=== PATIENT | male | born 1955 | race Caucasian/White ===

== ENCOUNTER 2018-11-03 20:53 | Inpatient (IN) | payer BC ==
[~2018-11-03] VITALS: Ht 182.9 cm; Wt 124.4 kg
[~2018-11-03 20:53] MED LIST: ANAS1TAB7 PO; DICY10CA13 PO; LOSA50TA64 PO; TEST200V21 IM
[2018-11-03 21:16] LABS: BASOPHILS % (AUTO) 0.3 % (0.0-5.0); EOSINOPHILS % (AUTO) 1.8 % (0.0-8.0); HEMATOCRIT 49.6 % (42-54); LYMPHOCYTES % (AUTO) 15.6 % (21.0-51.0); MEAN CORPUSCULAR HEMOGLOBIN 30.9 pg (27.0-33.0); MEAN CORPUSCULAR HGB CONC 34.5 g/dL (32.0-36.0); MEAN CORPUSCULAR VOLUME 89.6 fL (79-99); NEUTROPHILS % (AUTO) 73.3 % (40.0-77.0); PLATELET COUNT (AUTO) 143 K/uL (130-400); RED BLOOD CELL COUNT(AUTO) 5.54 MIL/uL (4.50-6.20); RED CELL DISTRIBUTION WIDTH 14.4 % (11.0-15.5); WHITE BLOOD COUNT (AUTO) 11.5 K/uL (4.8-10.8)
[2018-11-03 21:19] LABS: APPEARANCE,URINE Clear (CLEAR); BILIRUBIN,URINE Negative (NEGATIVE); COLOR,URINE Yellow (YELLOW); GLUCOSE, URINE (UA) Negative (NEGATIVE); KETONES,URINE Negative (NEGATIVE); LEUKOCYTE ESTERASE ,URINE Negative (NEGATIVE); NITRATE,URINE Negative (NEGATIVE); OCCULT BLOOD,URINE Negative (NEGATIVE); PH,URINE 5.5 (5.0-8.0); PROTEIN,URINE Negative (NEGATIVE)
[2018-11-03 21:24] LABS: CREATININE 1.4 mg/dL (0.5-1.5); POTASSIUM 4.4 mmol/L (3.5-5.1)
[2018-11-03] MEDS ORDERED: NITROGLYCERIN 1GM/1 INCH PACKET TD ONE (21:25)
[2018-11-03] MEDS ORDERED: ASPIRIN 81MG TAB.CHEW ONE (21:25)
[2018-11-03 21:37] LABS: ALBUMIN 3.6 g/dL (3.5-5.0); BILIRUBIN,TOTAL 0.6 mg/dL (0.2-1.0); TOTAL PROTEIN, SERUM 6.6 g/dL (6.0-8.3)
[2018-11-03 21:45] LABS: CREATINE KINASE, TOTAL 75 U/L (21-232); MYOGLOBIN 53 ng/mL (10-92); TROPONIN I < 0.04 ng/mL (0.00-0.06)
[2018-11-03] MEDS: NITROGLYCERIN 1GM/1 INCH PACKET TD SCH (22:45)
[2018-11-03] MEDS ORDERED: LORAZEPAM 2 MG/ML 1 ML VIAL IVP PRN (22:45)
[2018-11-03] MEDS ORDERED: MORPHINE SULFATE 2 MG/ML 1ML SYG IV PRN (22:45)
[2018-11-03] MEDS ORDERED: ONDANSETRON HCL 4 MG/2 ML VIAL IV PRN (22:45)
[2018-11-03] MEDS ORDERED: ACETAMINOPHEN 325 MG TAB PO PRN ×2 (22:45)
[2018-11-03] MEDS ORDERED: MORPHINE SULFATE 4 MG/1ML SYG IV PRN (22:45)
--- NOTE | 2018-11-03 23:30 | NUR ---
Received pt.from ER accompanied by .Pt. is alert and oriented,came in to Er for c/o chestpain however pt. denies chestpain or any discomfort at this time.Pt. orientated to room ,call light,bed mobility and staff.Instructed to use call light for assistance and demonstrated understanding.Pt. instructed to be on bedrest at this time.
[2018-11-03] MEDS ORDERED: AEC81 PO (23:31)
[2018-11-03 23:40] VITALS: BP 139/72
[2018-11-04 01:26] LABS: TROPONIN I 0.07 ng/mL (0.00-0.06)
[2018-11-04 03:46] VITALS: BP 121/62
[2018-11-04 05:45] LABS: TROPONIN I 0.07 ng/mL (0.00-0.06)
[2018-11-04] MEDS: NITROGLYCERIN 1GM/1 INCH PACKET TD SCH ×3 (05:54→21:46)
[2018-11-04 07:00] VITALS: BP 107/72
[2018-11-04] MEDS: METOPROLOL TARTRATE 25 MG TAB PO SCH ×2 (09:39→20:56)
[2018-11-04] MEDS: ASPIRIN 325 MG TABLET PO SCH (09:39)
[2018-11-04] MEDS: FAMOTIDINE/PF 20 MG/2 ML VIAL IV SCH ×2 (09:39→20:57)
[2018-11-04] MEDS: ENOXAPARIN SODIUM 30 MG/0.3 ML SQ SCH ×2 (09:41→20:59)
[2018-11-04 10:41] LABS: TROPONIN I 0.09 ng/mL (0.00-0.06)
[2018-11-04 11:30] VITALS: BP 112/65
[2018-11-04 16:00] VITALS: BP 112/57
--- NOTE | 2018-11-04 17:45 | NUR ---
cm note pt resides athome with spouse, independent with ambulation and adls and self care, dc plan is back to home. no dc needs. Addendum: 11/04/18 at 1746 by MICHAEL DURAN CM Amended: Links added.
[2018-11-04 20:00] VITALS: BP 117/70
[2018-11-04 20:56] LABS: TROPONIN I 0.17 ng/mL (0.00-0.06)
[2018-11-04 23:55] VITALS: BP 105/58
[2018-11-05 03:51] VITALS: BP 112/57
[2018-11-05 03:54] LABS: HEMOGLOBIN A1C 5.2 % (4.0-6.0)
[2018-11-05 04:07] LABS: INR 1.02 (0.85-1.15); PARTIAL THROMBOPLASTIN TIME 28.9 SEC (26.3-35.5); PROTHROMBIN TIME 10.7 SEC (9.6-11.6)
[2018-11-05 04:16] LABS: TROPONIN I 0.1 ng/mL (0.00-0.06)
[2018-11-05] MEDS: NITROGLYCERIN 1GM/1 INCH PACKET TD SCH ×2 (06:12→14:45)
[2018-11-05 07:00] VITALS: BP 112/60
[2018-11-05] MEDS: REGADENOSON 0.4 MG/5 ML PF SYG IVP SCH ×2 (07:15→12:33)
--- NOTE | 2018-11-05 07:30 | NUR ---
ASSESSMENT ENCOUNTERED PT AMBULATING AROUND ROOM, GAIT STEADY AND STRONG WITH STAND BY ASSIST, A&OX3, CALM, COOPERATIVE AND DOES NOT APPEAR TO BE IN ANY DISTRESS NOR ANY NEURO DEFICITS PRESENT. PT DENIES PAIN, SOB, NAUESA. PT IS NPO FOR PENDING LEXISCAN. CALL LIGHT WITHIN REACH, FAMILY AT BEDSIDE.
[2018-11-05] MEDS: FAMOTIDINE/PF 20 MG/2 ML VIAL IV SCH (09:00)
[2018-11-05] MEDS ORDERED: FAMOTIDINE 20MG TAB 20 MG TAB ONE (10:29)
[2018-11-05] MEDS: ASPIRIN 325 MG TABLET PO SCH (10:31)
[2018-11-05] MEDS: METOPROLOL TARTRATE 25 MG TAB PO SCH (10:31)
[2018-11-05] MEDS: ENOXAPARIN SODIUM 30 MG/0.3 ML SQ SCH (10:32)
[2018-11-05 11:00] VITALS: BP 117/68
--- NOTE | 2018-11-05 15:16 | NUR ---
RD Notification Pt tolerating Heart Healthy Diet with no report of GI distress and PO intake at 100%. Pt LBM 11/03/18. Pt monitored labs: HDL 28, BUN 24, GFR 55, Glu 103, Alb 3.6. Pt with Obesity (BMI 37.2). RD to continue to monitor. Please notify RD as nutritional concerns arise. Thank you. Addendum: 11/05/18 at [address] RD Amended: Links added.
--- NOTE | 2018-11-05 15:30 | NUR ---
DISCHARGE INSTRUCTIONS GIVEN, PIV REMOVED AND INTACT, DISCHARGED HOME TO FAMILY VEHICLE VIA WHEELCHAIR.
== END 2018-11-05 17:02 | disposition home or self-care (01) | DRG 311 ==
LOC: EDH 20:53 → EDHIP 22:15 → 2DH 23:28
PROVIDERS: ADMIT Hospitalist; ATTEND Hospitalist
DX: I20.0 Unstable angina (principal); I10 Essential (primary) hypertension; Z79.82 Long term (current) use of aspirin; Z85.46 Personal history of malignant neoplasm of prostate; Z87.891 Personal history of nicotine dependence; Z79.899 Other long term (current) drug therapy; Z80.0 Family history of malignant neoplasm of digestive organs; Z80.42 Family history of malignant neoplasm of prostate; Z82.3 Family history of stroke; Z82.5 Family history of asthma and other chronic lower respiratory diseases; Z80.59 Family history of malignant neoplasm of other urinary tract organ
CPT/HCPCS: 36415; 71045; 78452; 80053; 80061; 81003; 82550; 83036; 83874; 84484; 85025; 85610; 85730; 93005; 93017; 96374; A9500; G0378; J1650; J2785; J3490

== ENCOUNTER 2018-11-12 12:26 | Inpatient (IN) | payer BC ==
[~2018-11-12] VITALS: Ht 182.9 cm; Wt 120.6 kg
[2018-11-12] VITALS (9 sets, daily range): BP systolic 108–157; BP diastolic 60–97
[~2018-11-12 12:26] MED LIST changes: +AEC81 PO; -DICY10CA13 PO
[2018-11-12 12:48] LABS: BASOPHILS % (AUTO) 0.6 % (0.0-5.0); EOSINOPHILS % (AUTO) 1.6 % (0.0-8.0); HEMATOCRIT 48.3 % (42-54); LYMPHOCYTES % (AUTO) 16.1 % (21.0-51.0); MEAN CORPUSCULAR HEMOGLOBIN 30.3 pg (27.0-33.0); MEAN CORPUSCULAR HGB CONC 33.9 g/dL (32.0-36.0); MEAN CORPUSCULAR VOLUME 89.3 fL (79-99); MONOCYTES % (AUTO) 9.2 % (3.0-13.0); NEUTROPHILS % (AUTO) 72.5 % (40.0-77.0); NUCLEATED RED BLOOD CELLS 0.1 % (0.0-0.19); PLATELET COUNT (AUTO) 154 K/uL (130-400); RED BLOOD CELL COUNT(AUTO) 5.41 MIL/uL (4.50-6.20); RED CELL DISTRIBUTION WIDTH 13.8 % (11.0-15.5); WHITE BLOOD COUNT (AUTO) 9.8 K/uL (4.8-10.8)
[2018-11-12 12:57] LABS: CREATININE 1.2 mg/dL (0.5-1.5); POTASSIUM 4.5 mmol/L (3.5-5.1)
[2018-11-12 13:01] LABS: ALBUMIN 3.6 g/dL (3.5-5.0); BILIRUBIN,TOTAL 0.6 mg/dL (0.2-1.0); TOTAL PROTEIN, SERUM 6.7 g/dL (6.0-8.3)
[2018-11-12 13:08] LABS: CREATINE KINASE, TOTAL 67 U/L (21-232); MYOGLOBIN 41 ng/mL (10-92); TROPONIN I < 0.04 ng/mL (0.00-0.06)
[2018-11-12] MEDS ORDERED: ANAS1TAB7 PO (13:16)
[2018-11-12] MEDS ORDERED: SODIUM CHLORIDE 0.9% 10 ML VIAL IVP SCH (13:30)
[2018-11-12] MEDS ORDERED: ONDANSETRON HCL 4 MG/2 ML VIAL IVP PRN (13:30)
[2018-11-12] MEDS ORDERED: ASPI-555 PO (13:32)
[2018-11-12] MEDS ORDERED: PANT40TA25 PO (13:32)
[2018-11-12] MEDS ORDERED: ISOS10TA8 PO (13:32)
[2018-11-12] MEDS ORDERED: LOSA50TA64 PO (13:32)
[2018-11-12] MEDS ORDERED: NITR0.4T50 SL (13:32)
[2018-11-12 14:22] LABS: INR 1.05 (0.85-1.15); PARTIAL THROMBOPLASTIN TIME 29.1 SEC (26.3-35.5)
[2018-11-12] MEDS ORDERED: LIDOCAINE HCL 2% 20ML ONE (14:48)
[2018-11-12] MEDS ORDERED: IOHEXOL-350 50ML VIAL IV ONE ×2 (14:48→15:30)
[2018-11-12] MEDS ORDERED: HEPARIN SODIUM 1000UNIT/ML 10ML VIAL ONE (14:48)
[2018-11-12] MEDS ORDERED: NITROGLYCERIN 5 MG/ML 10 ML VIAL IV ONE (14:48)
[2018-11-12] MEDS ORDERED: IOHEXOL 350 MG/ML 100ML INFUS..BTL IV ONE ×2 (14:48→15:33)
[2018-11-12] MEDS ORDERED: SODIUM BICARB 50MEQ 50ML VIAL ONE (14:48)
[2018-11-12] MEDS ORDERED: MEPERIDINE-PF 25 MG/ML SYG ONE ×2 (15:19→15:38)
[2018-11-12] MEDS ORDERED: MIDAZOLAM HCL 1 MG/ML 2ML VIAL ONE ×2 (15:19→15:37)
[2018-11-12] MEDS ORDERED: IOHEXOL-350 75 ML VIAL IV ONE ×2 (15:33→15:58)
[2018-11-12] MEDS ORDERED: TICAGRELOR 90 MG TABLET ONE (16:07)
[2018-11-12] MEDS ORDERED: ASPIRIN 81MG TAB.CHEW ONE (16:07)
[2018-11-12] MEDS ORDERED: NITROGLYCERIN 0.4 MG SL TAB SL SCH (16:15)
[2018-11-12] MEDS ORDERED: SODIUM CHLORIDE 0.9% 1000ML 1,000 ML IV SCH (16:16)
[2018-11-12] MEDS ORDERED: ALPRAZOLAM 0.5 MG TABLET PO PRN (16:30)
[2018-11-12] MEDS: TICAGRELOR 90 MG TABLET PO SCH (20:14)
[2018-11-12] MEDS ORDERED: ATORVASTATIN CALCIUM 10 MG TABLET PO SCH (21:00)
[2018-11-13 03:36] LABS: HEMATOCRIT 44.9 % (42-54); MEAN CORPUSCULAR HEMOGLOBIN 31.3 pg (27.0-33.0); MEAN CORPUSCULAR HGB CONC 34.7 g/dL (32.0-36.0); MEAN CORPUSCULAR VOLUME 90.2 fL (79-99); PLATELET COUNT (AUTO) 125 K/uL (130-400); RED BLOOD CELL COUNT(AUTO) 4.98 MIL/uL (4.50-6.20); RED CELL DISTRIBUTION WIDTH 14.2 % (11.0-15.5); WHITE BLOOD COUNT (AUTO) 9.1 K/uL (4.8-10.8)
[2018-11-13 03:42] LABS: CREATININE 1.2 mg/dL (0.5-1.5); POTASSIUM 4.3 mmol/L (3.5-5.1)
[2018-11-13 03:47] VITALS: BP 142/76
--- NOTE | 2018-11-13 05:34 | NUR ---
PATIENT DENIES SOB OR CHEST PAIN. ASSESSED R GROIN Q4H. NO S/S OF HEMATOMA. PEDAL PULSES INTACT. PATIENT AMBULATED WITHOUT COMPLICATIONS S/P HEART CATH.
[2018-11-13 07:00] VITALS: BP 128/69
[2018-11-13] MEDS: TICAGRELOR 90 MG TABLET PO SCH (08:25)
[2018-11-13] MEDS ORDERED: LOSARTAN 50 MG TABLET PO SCH (09:00)
[2018-11-13] MEDS ORDERED: ASPIRIN 81MG TAB.CHEW PO SCH (09:00)
[2018-11-13] MEDS ORDERED: PANTOPRAZOLE SODIUM 40 MG TABLET.DR PO SCH (09:00)
[2018-11-13] MEDS ORDERED: ASPIRIN 325 MG TABLET PO SCH (09:00)
[2018-11-13 11:00] VITALS: BP 133/72
[2018-11-13] MEDS ORDERED: ROSU5TAB11 PO (11:17)
[2018-11-13] MEDS ORDERED: TICA90TA PO (11:17)
--- NOTE | 2018-11-13 14:38 | NUR ---
DC PLAN VISITED WITH PATIENT. PATIENT GETTING ECHO. UNABLE TO DO IA. PATIENT BEING DISCHARGED NO NEEDS VERBALIZED BY NURSING STAFF. Addendum: 11/13/18 at 1439 by ERIN MARSH RN CM Amended: Links added.
--- NOTE | 2018-11-13 15:49 | NUR ---
PIV and telepack removed; prescription given to patient and copy placed in chart; coronary stent card also given to patient and copy placed in chart; all questions answered and patient discharged home
== END 2018-11-13 17:00 | disposition home or self-care (01) | DRG 247 ==
LOC: EDH 12:26 → 2AH 12:27
PROVIDERS: ADMIT Internal Medicine; ATTEND Internal Medicine
PROC: 4A023N7 Measurement of Cardiac Sampling and Pressure, Left Heart, Percutaneous Approach (ICD-10-PCS; principal; 2018-11-12)
PROC: 027135Z Dilation of Coronary Artery, Two Arteries with Two Drug-eluting Intraluminal Devices, Percutaneous Approach (ICD-10-PCS; 2018-11-12)
PROC: B2111ZZ Fluoroscopy of Multiple Coronary Arteries using Low Osmolar Contrast (ICD-10-PCS; 2018-11-12)
PROC: B2151ZZ Fluoroscopy of Left Heart using Low Osmolar Contrast (ICD-10-PCS; 2018-11-12)
DX: I25.110 Atherosclerotic heart disease of native coronary artery with unstable angina pectoris (principal); I10 Essential (primary) hypertension; E78.5 Hyperlipidemia, unspecified; K21.9 Gastro-esophageal reflux disease without esophagitis; Z98.84 Bariatric surgery status; Z90.79 Acquired absence of other genital organ(s); Z85.46 Personal history of malignant neoplasm of prostate; Z80.42 Family history of malignant neoplasm of prostate; Z80.0 Family history of malignant neoplasm of digestive organs; Z82.3 Family history of stroke; Z82.5 Family history of asthma and other chronic lower respiratory diseases; Z82.49 Family history of ischemic heart disease and other diseases of the circulatory system
CPT/HCPCS: 36415; 80048; 80053; 82550; 83874; 84484; 85025; 85027; 85610; 85730; 93005; 93306; 93458; 99156; 99157; C1760; C1769; C1887; C1894; C9600; G0378; J1644; J2175; J2250; J3490; J7030; Q9967

== ENCOUNTER → 2019-02-27 | Outpatient (CLI) | payer BC ==
[~2019-02-27] MED LIST changes: +NITR0.4T50 SL; +PANT40TA25 PO; +ROSU5TAB12 PO; +TICA90TA PO
== END | disposition home or self-care (01) ==
LOC: SHCH 15:26
PROVIDERS: ATTEND Internal Medicine Cardiovascular Disease
DX: I11.9 Hypertensive heart disease without heart failure (principal); I25.10 Atherosclerotic heart disease of native coronary artery without angina pectoris
CPT/HCPCS: 93306

== ENCOUNTER → 2022-12-08 | Outpatient (CLI) | payer BC ==
[~2022-12-08] MED LIST changes: -PANT40TA25 PO; +PANT40TA54 PO; -TICA90TA PO
== END | disposition home or self-care (01) ==
LOC: SHCH 07:55
PROVIDERS: ATTEND Internal Medicine Cardiovascular Disease
DX: I11.9 Hypertensive heart disease without heart failure (principal); I25.10 Atherosclerotic heart disease of native coronary artery without angina pectoris
CPT/HCPCS: 93306

== ENCOUNTER 2024-01-25 12:03 | Inpatient (IN) | payer BC, MEDICARE ==
[~2024-01-25] VITALS: Ht 182.9 cm; Wt 115.6 kg
[~2024-01-25 12:03] MED LIST changes: -ROSU5TAB12 PO; +ROSU5TAB43 PO
[2024-01-25 12:38] LABS: BASOPHILS # (AUTO) 0.05 K/uL (0.00-0.20); BASOPHILS % (AUTO) 0.5 % (0.0-5.0); EOSINOPHILS # (AUTO) 0.15 K/uL (0.00-0.70); EOSINOPHILS % (AUTO) 1.6 % (0.0-8.0); HEMATOCRIT 51.5 % (42-54); IMMATURE GRANULOCYTE ABSOLUTE 0.04 K/uL (0-1); LYMPHOCYTES # (AUTO) 1.7 K/uL (1.0-4.8); LYMPHOCYTES % (AUTO) 17.8 % (21.0-51.0); MEAN CORPUSCULAR HEMOGLOBIN 31.8 pg (27.0-33.0); MONOCYTES # (AUTO) 0.8 K/uL (0.1-1.0); MONOCYTES % (AUTO) 8.6 % (3.0-13.0); NEUTROPHILS # (AUTO) 6.8 K/uL (1.8-7.7); NEUTROPHILS % (AUTO) 71.1 % (40.0-77.0); PLATELET COUNT (AUTO) 146 K/uL (130-400); RED BLOOD CELL COUNT(AUTO) 5.66 MIL/uL (4.50-6.20); RED CELL DISTRIBUTION WIDTH 13.2 % (11.0-15.5); WHITE BLOOD COUNT (AUTO) 9.5 K/uL (4.8-10.8)
[2024-01-25 12:48] LABS: APPEARANCE,URINE CLEAR (CLEAR); BILIRUBIN,URINE NEGATIVE (NEGATIVE); COLOR,URINE YELLOW (YELLOW); GLUCOSE, URINE (UA) NEGATIVE (NEGATIVE); KETONES,URINE 5 mg/dL (NEGATIVE); LEUKOCYTE ESTERASE ,URINE NEGATIVE Leu/uL (NEGATIVE); NITRATE,URINE NEGATIVE (NEGATIVE); OCCULT BLOOD,URINE NEGATIVE (NEGATIVE); PH,URINE 5.5 (5.0-8.0); PROTEIN,URINE 10 mg/dL (NEGATIVE)
[2024-01-25 12:49] LABS: CREATININE 1.3 mg/dL (0.5-1.3); POTASSIUM 3.8 mmol/L (3.5-5.1)
[2024-01-25 12:50] LABS: ADD UA MICROSCOPIC YES
[2024-01-25 12:52] LABS: MUCUS,URINE RARE LPF (None Seen); RBC,URINE 0-1 /HPF (0-1); WBC,URINE 0-1 /HPF (0-1)
[2024-01-25 13:03] LABS: B-TYPE NATRIURETIC PEPTIDE 9 pg/mL (0-100)
[2024-01-25] MEDS: ASPIRIN 325MG EC TAB PO ONE (13:27)
[2024-01-25] MEDS: NITROGLYCERIN 1GM OINT 1 INCH/1GM TD ONE (13:27)
[2024-01-25] MEDS ORDERED: NITROGLYCERIN 0.4 MG SL TAB SL PRN (16:00)
[2024-01-25] MEDS ORDERED: acetaMINOPHEN 325 MG TAB PO PRN (16:00)
[2024-01-25] MEDS ORDERED: MAG/ALUM/SIMETH 30 ML UDCUP PO PRN (16:00)
[2024-01-25] MEDS ORDERED: morPHINE 2 MG SYG IV PRN (16:00)
[2024-01-25] MEDS ORDERED: ONDANSETRON 4MG INJ IV PRN (16:00)
[2024-01-25] MEDS ORDERED: LACTULOSE 20 GM/30 ML UDCUP PO PRN (16:00)
[2024-01-25] MEDS ORDERED: DiphenhydrAMINE HCL 25 MG CAPSULE PO PRN (16:00)
[2024-01-25] MEDS ORDERED: guaiFENesin-DM 200/20MG 10ML PO PRN (16:00)
[2024-01-25] MEDS ORDERED: hydrALAZine 20MG/ML VIAL IV PRN (16:00)
[2024-01-25 19:13] VITALS: BP 124/72; PULSE 64; RESP 16; TEMP 97.6
[2024-01-25 19:41] VITALS: BP 115/73; PULSE 69; RESP 18; TEMP 98.4
[2024-01-25 20:00] VITALS: O2SAT 95
[2024-01-25] MEDS: FAMOTIDINE 20MG VIAL IV SCH (20:05)
[2024-01-25] MEDS: atorVAStatin 40 MG TABLET PO SCH (20:06)
[2024-01-26] VITALS (9 sets, daily range): BP systolic 98–154; BP diastolic 63–90; PULSE 57–94; RESP 18; TEMP 97.5–98.8; O2SAT 95–99
[2024-01-26] MEDS: ASPIRIN 81 MG EC TAB PO SCH (09:26)
[2024-01-26] MEDS: ENOXAPARIN SODIUM 40 MG/0.4 ML SYRINGE SQ SCH (09:26)
[2024-01-27] MEDS: ENOXAPARIN SODIUM 120 MG/0.8ML SQ SCH (03:30)
[2024-01-27 03:37] VITALS: BP 122/65; PULSE 62; RESP 18; TEMP 98.2
[2024-01-27] MEDS: CLOPIDOGREL 300MG TAB PO ONE (05:25)
[2024-01-27] MEDS: CLOPIDOGREL 300MG TAB ONE (05:28)
[2024-01-27 07:00] VITALS: BP 120/74; PULSE 57; RESP 20; TEMP 98.2
[2024-01-27 08:00] VITALS: O2SAT 98
[2024-01-27] MEDS ORDERED: LIDOCAINE HCL 400MG/20ML VIAL ONE (08:46)
[2024-01-27] MEDS ORDERED: HEParin 10,000 UNIT/10ML (1,000 UNIT/ML) VIAL ONE (08:47)
[2024-01-27] MEDS ORDERED: HEParin-NS 1,000 UNIT/500 ML 1,000 ML IV ONE (08:47)
[2024-01-27] MEDS ORDERED: NITROGLYCERIN 50MG VIAL ONE (08:47)
[2024-01-27] MEDS ORDERED: VERAPAMIL HCL 2.5 MG/ML VIAL ONE (08:47)
[2024-01-27] MEDS ORDERED: IOHEXOL 350 MG/ML 100ML INFUS..BTL IV ONE ×2 (08:47→10:04)
[2024-01-27 08:57] LABS: INR 1.08 (0.85-1.15); PROTHROMBIN TIME 11.6 SEC (9.6-11.6)
[2024-01-27 08:59] LABS: PARTIAL THROMBOPLASTIN TIME 27.2 SEC (26.3-35.5)
[2024-01-27] MEDS ORDERED: FENTanyl CITRate PF 50 MCG/1 ML 2ML VIAL ONE (09:02)
[2024-01-27] MEDS ORDERED: MIDAZOLAM HCL 1 MG/ML 2ML VIAL ONE (09:02)
[2024-01-27 11:00] VITALS: BP 128/75; PULSE 50; RESP 20; TEMP 97.5
[2024-01-27] MEDS ORDERED: 0.9%NACL 1000ML 1,000 ML IV SCH (11:00)
[2024-01-27 11:15] VITALS: BP 135/80; PULSE 57
[2024-01-27] MEDS ORDERED: ATOR40TA69 PO (11:16)
[2024-01-27] MEDS ORDERED: PRAS10TA6 PO (11:16)
[2024-01-27 11:30] VITALS: BP 126/93; PULSE 56
[2024-01-27 12:26] LABS: HEMATOCRIT 45.7 % (42-54); MEAN CORPUSCULAR HGB CONC 37.6 g/dL (32.0-36.0); MEAN CORPUSCULAR VOLUME 93.1 fL (79-99); PLATELET COUNT (AUTO) 140 K/uL (130-400); RED BLOOD CELL COUNT(AUTO) 4.91 MIL/uL (4.50-6.20); RED CELL DISTRIBUTION WIDTH 13.4 % (11.0-15.5); WHITE BLOOD COUNT (AUTO) 8.5 K/uL (4.8-10.8)
[2024-01-27 12:38] LABS: CREATININE 1.3 mg/dL (0.5-1.3)
[2024-01-27 12:43] LABS: ALBUMIN 3.1 g/dL (3.5-5.0); BILIRUBIN,TOTAL 1.1 mg/dL (0.2-1.0); TOTAL PROTEIN, SERUM 6.2 g/dL (6.0-8.3)
[2024-01-27] MEDS: PRASUGREL HCL 10 MG TABLET PO ONE (12:44)
[2024-01-28] MEDS ORDERED: PRASUGREL HCL 10 MG TABLET PO SCH (09:00)
== END 2024-01-27 13:00 | disposition home or self-care (01) | DRG 322 ==
LOC: EDH 12:03 → EDHIP 15:48 → 2DH 17:57
PROVIDERS: ADMIT Hospitalist; ATTEND Hospitalist
PROC: 027034Z Dilation of Coronary Artery, One Artery with Drug-eluting Intraluminal Device, Percutaneous Approach (ICD-10-PCS; principal; 2024-01-27)
PROC: 4A023N7 Measurement of Cardiac Sampling and Pressure, Left Heart, Percutaneous Approach (ICD-10-PCS; 2024-01-27)
PROC: B2111ZZ Fluoroscopy of Multiple Coronary Arteries using Low Osmolar Contrast (ICD-10-PCS; 2024-01-27)
DX: I21.4 Non-ST elevation (NSTEMI) myocardial infarction (principal); E87.1 Hypo-osmolality and hyponatremia; I25.110 Atherosclerotic heart disease of native coronary artery with unstable angina pectoris; E78.5 Hyperlipidemia, unspecified; I10 Essential (primary) hypertension; K59.00 Constipation, unspecified; Z79.899 Other long term (current) drug therapy; Z79.01 Long term (current) use of anticoagulants; Z90.79 Acquired absence of other genital organ(s); Z95.5 Presence of coronary angioplasty implant and graft; Z85.46 Personal history of malignant neoplasm of prostate; Z79.82 Long term (current) use of aspirin
CPT/HCPCS: 36415; 71045; 80048; 80053; 81001; 82550; 82948; 83735; 83880; 84484; 85025; 85027; 85610; 85730; 93005; 93306; 93356; 93458; 93571; 96374; 99156; 99157; C1769; C1887; C1894; C9600; G0378; J1644; J1650; J2250; J3010; J3490; Q9967; A4649; C1725; C1874; Q9965